=== PATIENT | female | born 1995 | race Caucasian/White ===

== ENCOUNTER 2019-03-05 12:34 | Outpatient (CLI) | payer BC, SELFPAY | END 2019-03-05 13:45 | disposition home or self-care (01) | LOC: WPOUT 12:46 → WP 12:46 | PROVIDERS: Referring Provider Obstetrics & Gynecology; Visit Provider Obstetrics & Gynecology | DX: Z39.1 Encounter for care and examination of lactating mother (principal) | CPT/HCPCS: 96152 ==

== ENCOUNTER 2019-03-10 14:15 | Outpatient (CLI) | payer BC, SELFPAY | END 2019-03-10 15:15 | disposition home or self-care (01) | LOC: WPOUT 14:22 → WP 14:22 | PROVIDERS: Referring Provider Obstetrics & Gynecology; Visit Provider Obstetrics & Gynecology | DX: Z39.1 Encounter for care and examination of lactating mother (principal) | CPT/HCPCS: 96152 ==

== ENCOUNTER 2019-03-18 14:29 | Emergency (ER) | payer BC, SELFPAY ==
[2019-03-18 14:29] VITALS: BP 135/77; PULSE 71; RESP 14; TEMP 36.3; O2SAT 98; BMI 21.4
[2019-03-18 15:18] VITALS: BP 111/79; BP 124/85; BP 130/85; PULSE 62; PULSE 70; PULSE 75
[2019-03-18] MEDS: 0.9% Normal Saline 1,000 ML 1000 ML IV (15:35)
[2019-03-18 15:36] LABS: Absolute Lymphocyte Count 2.34 X10^3/ul (0.83-4.51); Absolute Neutrophil Count 5.8 X10^3/uL (2.0-7.7); Basophil# 0.03 X10^3/uL; Basophil% 0.3 % (0-1); Eosinophil# 0.03 X10^3/uL; Eosinophils% 0.3 % (0-5); Hematocrit 37.9 % (37-47); Hemoglobin 12.6 g/dl (12.0-15.0); Lymphocyte # 2.34 X10^3/ul (4.0); Lymphocyte % 26.7 % (19-41); Mean Corp Hgb Conc 33.2 g/gl (32-36); Mean Corpuscular Hgb 28.5 pg (27.0-32.0); Mean Corpuscular Volume 85.7 fL (81-99); Monocyte# 0.59 X10^3/uL; Monocyte% 6.7 % (0-10); Neutrophil # 5.75 X10^3/uL (2.7-7.7); Neutrophil % 65.9 % (47-70); Platelet Count 340 K/mm3 (150-450); RBC Distribution Width CV 13.7 % (11.6-14.6); Red Blood Count 4.42 M/mm3 (4.2-5.4); White Blood Count 8.8 K/mm3 (4.4-11.0)
[2019-03-18 15:37] LABS: POSITIVE COUNT NO; POSITIVE DIFFERENTIAL NO; POSITIVE MORPHOLOGY NO
[2019-03-18 15:43] LABS: Bacteria 0 SEEN /hpf (None Seen); Squamous Epithelial Cells - UA 0 SEEN /hpf (5-10)
[2019-03-18 15:44] LABS: Color, Urine Yellow (Yellow); Glucose, Dipstick Normal (Normal); Ketone-Dipstick 15 mg/dl (Negative); Leukocyte Esterase-Dipstick 100 /ul (Negative); Nitrite-Dipstick Negative (Negative); Occult Blood-Urine 50 /ul (Negative); Protein-Dipstick 15 mg/dl (Negative); Urine Bilirubin Dipstick Negative (Negative); Urine Clarity Clear (Clear); Urine Urobilinogen Normal (Normal)
[2019-03-18 15:48] LABS: Anion Gap 7 (5-15); BUN 13 mg/dL (7-18); Chloride 110 mmol/L (98-107); Creatinine, Serum 0.77 mg/dL (0.55-1.02); EST Glomerular Filtration Rate 98 mL/min (>60); Est Glom Filt Rate - Afr Amer 119 mL/min (>60); Estimated Creatinine Clearance 101.37 ml/min; Glucose 80 mg/dL (74-106); Potassium 4.4 mmol/L (3.5-5.1); Sodium Level 139 mmol/L (136-145)
[2019-03-18 15:53] LABS: Red Blood Cells-Urine 5-10 SEEN /hpf (0-5); White Blood Cells 5-10 SEEN /hpf (0-5)
[2019-03-18 15:54] LABS: Mucous, Urine 2+ /hpf (<or=2+)
--- NOTE | 2019-03-18 16:11 | ED.VISSUMM ---
- ER Visit Summary Date of Service: 03/18/19 Chief Complaint: Lightheaded and dizzy History of Present Illness: The patient is a 24 F with no primary care physician. 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 She had a home delivery with the art coordinator on March 01. She was a at 40 weeks and 4 days. States that she has not had any vaginal bleeding for approximately 1 week. She is still having a small amount of lochia. There is no odor. Patient reports that yesterday she felt lightheaded all day. It did increase when she stood up. She did not pass out. Today however she reports that she has vertigo. States it is been constant. It is increased with walking and getting up. She does state that it is a sensation of the room spinning. She denies any ringing or roaring in her ears. No ear pain. No change in her hearing. No slurred speech or double vision. No headache or other neurologic complaints. Patient does report with this she is been nauseated and vomited once. No blood or emesis. She denies fever. She has had chills. She complains of dysuria and hematuria last week that she took a medication called urinary maintenance for and that this resolved. Physical Examination: Vitals: Stable. Afebrile. General: Well-nourished and well-developed. Head: Normocephalic atraumatic. HEENT: TMs are within normal limits bilaterally. Neck: Supple, no lymphadenopathy. No JVD. Nontender. Cardiovascular: Regular rate and rhythm. No murmurs. Respiratory: No respiratory distress. Clear to auscultation bilaterally. Abdominal: Soft, nontender, nondistended, normal bowel sounds. No guarding, rebound, or peritoneal signs. Back: Nontender. Extremities: Nontender, no edema. Skin: Normal color, no rash. Neurologic: Alert and oriented ?3. Cranial nerves II through XII are intact. Normal strength and sensation. Nystagmus with gaze to the left. Psych: Normal affect. Test Results: CBC is normal. Chem-7 is remarkable for a chloride of 110. UA shows 5-10 white blood cells and 5-10 red blood cells with no bacteria. Emergency Department Course and Treatment: Patient had negative orthostatic vital signs. She was given a liter of normal saline. She refused any medications as she is breast-feeding. She is resting comfortably and able to ambulate without difficulty. Treatment Plan: Had a prolonged discussion with the patient this is likely labyrinthitis, but the more worrisome diagnosis is a stroke. At this time she feels well and would like to go home. She will be discharged instructions to follow-up with Dr. Edgar Olguin iii, whom her sees, and 2 days if not improving. Return to the emergency department for any worsening symptoms. Disposition: Discharged in stable condition. Impression: 1. Vertigo, peripheral. 2. 17 days . This note was generated with [employer] software. It may contain incorrect words, spelling, and punctuation that were not noted in review of the chart prior to signing ED Disposition - Plan for ED Patient: Disposition: Home or Assisted Living Instructions: ED Vertigo Unspecified Referrals: Edgar Olguin III, MD [STAFF PHYSICIAN] - 1-2 Days if not improving
--- NOTE | 2019-03-18 16:24 | NURSING ---
MOTHER IN BREAST FEEDING HER 2 WEEK OLD INFANT. D/C INSTRUCTION GIVEN AND DISCUSSED. FAMILY AND PATIENT STATED UNDERSTANDING OF D/C INSTRUCTIONS AND FOLLOW-UP. PT INSTRUCTED THAT WE WOULD REMOVE HER IV AND GET D/C VITALS AFTER SHE FINISHED FEEDING INFANT. Mati EDMONDS RN [id number]
== END 2019-03-18 16:57 | disposition home or self-care (01) ==
LOC: ED 15:10
PROVIDERS: Emergency Provider Emergency Medicine
DX: O99.89 Other specified diseases and conditions complicating pregnancy, childbirth and the puerperium (principal); H81.399 Other peripheral vertigo, unspecified ear; Z3A.17 17 weeks gestation of pregnancy
CPT/HCPCS: 80048; 81001; 85025; 96360; 99285; J7030; A4216